=== PATIENT | male | born 1960 | race African-American/Black ===

== ENCOUNTER → 2024-12-01 | Day surgery (SDC) | payer MEDICARE, MEDICAID ==
[~2024-12-01] VITALS: Ht 180.3 cm; Wt 117.0 kg
[~2024-12-01] MED LIST: ACETAMINOPHEN 1,000MG/100ML PREMIX IV PRN; ACETAMINOPHEN 1000MG/100ML 100 ML IV ONE; ACETAMINOPHEN 1000MG/100ML 100 ML IV PRN; ALLO100T PO; AMLO1TAB15 PO; BUPIVACAINE HCL/PF 0.5% (5MG/ML) 10ML ONE; CEFAZOLIN SODIUM 1000MG/VIAL ONE; FAMOTIDINE 20MG/2ML VIAL IV ONE; FENTANYL CITRATE/PF 50MCG/ML 2ML VIAL ONE; HYDRALAZINE 20MG/ML VIAL IV PRN; HYDROMORPHONE HCL/PF 1MG/ML INJ IV PRN; HYDROMORPHONE HCL/PF 2MG/ML INJ ONE; KETOROLAC 30MG/ML VIAL ONE; LABETALOL 5MG/ML 4ML INJ IV PRN; LACTATED RINGERS 1,000 ML IV SCH; LIDOCAINE HCL 1% 10 MG/ML 10ML VIAL ONE; MEPERIDINE HCL/PF 25MG/ML CPJ IV PRN; METOCLOPRAMIDE HCL 10MG/2ML VIAL ONE; MIDAZOLAM HCL 2 MG/2 ML VIAL ONE; ONDANSETRON HCL 4MG/2ML INJ ONE; POLYMYXIN B SULFATE 500000 UNITS/VIAL ONE; PROPOFOL 200MG/20ML VIAL IV ONE; ROCURONIUM BROMIDE 10MG/ML VIAL 5ML IV ONE; ROSU40TA PO; SKIN ADHESIVE 0.7 GM EA TOP ONE; SUCCINYLCHOLINE CHLORIDE 200MG/10ML IV ONE
[2024-12-01] MEDS: FAMOTIDINE 20MG/2ML VIAL IV PRN (11:48)
[2024-12-01] MEDS: ONDANSETRON HCL 4MG/2ML INJ IV PRN (11:48)
[2024-12-01] MEDS: SCOPOLAMINE HYDROBROMIDE PATCH 72HR TD SCH (13:18)
[2024-12-01] MEDS: METOCLOPRAMIDE HCL 10MG/2ML VIAL IV SCH (13:18)
[2024-12-01] MEDS: DEXAMETHASONE 10 MG/ML VIAL IV SCH (13:19)
== END | disposition home or self-care (01) ==
LOC: OR 05:38
PROVIDERS: ATTEND Specialist
DX: K43.6 Other and unspecified ventral hernia with obstruction, without gangrene (principal); G47.30 Sleep apnea, unspecified; I10 Essential (primary) hypertension; E78.5 Hyperlipidemia, unspecified; E66.9 Obesity, unspecified; Z79.899 Other long term (current) drug therapy; Z91.018 Allergy to other foods; Z98.890 Other specified postprocedural states; Z68.36 Body mass index [BMI] 36.0-36.9, adult
CPT/HCPCS: 49594; 82962; 84132; 36415; 93005; C1781; J3010; J0131; J0665; J0690; J1100; J1308; J1885; J2003; J2765; J2250; J2405; J3490 ×2; J2704; J0330; J1171